=== PATIENT | male | born 1940 | race Caucasian/White ===

== ENCOUNTER 2017-03-03 12:58 | Outpatient (CLI) | payer MEDICARE | END 2017-03-03 12:59 | disposition home or self-care (01) | LOC: LABBT 12:58 | PROVIDERS: ATTEND Neurological Surgery | DX: Z01.818 Encounter for other preprocedural examination (principal); M48.061 Spinal stenosis, lumbar region without neurogenic claudication ==

== ENCOUNTER → 2017-03-10 | Day surgery (SDC) | payer MEDICARE ==
[2017-03-03 13:32] VITALS: BMI 36.7
--- NOTE | 2017-03-09 20:16 | HP ---
HISTORY OF PRESENT ILLNESS: Mr. Jones is a known patient of ours, who presents for evaluation of lo w back pain and neurogenic claudication symptoms. He signed to us for previous lumbar decompression and bilateral carpal tunnel releases. At present, he does again mostly describe significant low back pain with neurogenic symptoms as he is walking. MRI performed at provided on disk reveals sig nificant central canal stenosis at L2-L3 and moderate canal stenosis at L3-L4, which matches symptoms rather well and he hopes to treat this surgically. 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 PAST SURGICAL HISTORY: Right lung resection, right shoulder rotator cuff repair, right thumb tendon attachment, uvula clipped, lumbar laminectomy x2, bilateral carpal tunnel release. MEDICATIONS: Spiriva, Diovan, Singulair, Combivent, Claritin, baby aspirin, and biotin. ALLERGIES: PENICILLIN. PHYSICAL EXAMINATION: Patient is alert and oriented x3. Gait is severely antalgic. Lower extremity motor exam is normal. ASSESSMENT: Lumbar stenosis with neurogenic claudication. PLAN: Dr. Calloway met with the patient, reviewed imaging, and ultimately, advocated for an L2 through L3 decompression. He explained to the patient the risks, benefits, and alternatives of the procedure . The patient expressed understanding and would like to move forward with surgery as discussed. I d o believe the patient is mentally competent and capable of making medical decisions for himself and w e will move forward with surgery as planned. Tyrell Vázquez PA-C dictating for Leonardo Calloway M.D.
[~2017-03-10] MED LIST: Bupivacaine/Epinephrine 0.25% 30 ML VIAL ONE; Fentanyl 100 MCG/2 ML VIAL ONE; Fentanyl 250 MCG/5 ML VIAL ONE; Glycopyrrolate 0.2 MG/ML 5 ML SYRINGE ONE; HYDROcodone/Acetaminophen 5/325 mg Tablet ONE; Lidocaine 1% PF 5 ML VIAL ONE; Ondansetron HCl/PF 4 MG/2 ML Vial ONE; Propofol 200 MG/20 ML VIAL ONE; Tamsulosin HCl 0.4 MG CAP ONE; Thrombin 5000 UNITS/5 ML VIAL ONE; Vancomycin HCl 500 MG VIAL ONE
--- NOTE | 2017-03-10 11:20 | OP ---
DATE OF PROCEDURE: 03/10/2017 SURGEON: Leonardo Calloway M.D. ENVIRONMENTAL HEALTH INSPECTOR: Tyrell Vázquez PA-C INDICATION: Pain. DIAGNOSIS: Lumbar stenosis. PROCEDURE: L2-L3 lumbar decompression. ANESTHESIA: General. TECHNIQUE: The patient was brought into the operating room and placed under general anesthesia. He was flipped from a supine to a prone position on the operating room table. A linear incision was huseyin nned just superior to an old incision. After prepping and draping and after an appropriate operative pause, the incision was created. Soft tissues were swept away from midline. A self-retaining retra ctor was placed in the wound for optimal exposure. After confirming the appropriate level with C-arm fluoroscopy, the spinous process of L2 and what remained of L3 were removed. A high-speed cutting d rill bit was used to remove the lamina at L2 and L3. The laminectomy encompassed the medial aspect o f the facet joints at that segment. After completely decompressing this area, the wound was irrigate d. Hemostasis was maintained throughout. The wound was then closed in anatomic layers and a pressur e dressing was applied. There were no known procedural complications.
== END ==
LOC: SDC 06:30
PROVIDERS: ATTEND Neurological Surgery
PROC: 00NY0ZZ Release Lumbar Spinal Cord, Open Approach (ICD-10-PCS; principal; 2017-03-10)
DX: M48.061 Spinal stenosis, lumbar region without neurogenic claudication (principal); I10 Essential (primary) hypertension; J45.909 Unspecified asthma, uncomplicated; Z88.0 Allergy status to penicillin; Z88.1 Allergy status to other antibiotic agents; Z98.890 Other specified postprocedural states
CPT/HCPCS: 76001; 96374; J2001; J2405; J2704; J3010; J3370

== ENCOUNTER 2017-03-17 06:46 | Emergency (ER) | payer MEDICARE ==
[2017-03-17] MEDS ORDERED: Ondansetron HCl/PF 4 MG/2 ML Vial ONE (08:43)
[2017-03-17] MEDS ORDERED: Morphine 4 MG/ML VIAL ONE (08:43)
[2017-03-17 08:54] LABS: #Basophils 0.1 thou/uL (0.0-0.2); #Eosinphils 0.1 thou/uL (0.0-0.7); #Lymphocytes 1.3 thou/uL (1.20-3.40); #Monocytes 0.7 thou/uL (0.11-0.59); #Neutrophils 5.7 thou/uL (1.40-6.50); %Basophils 0.9 % (0.0-1.0); %Eosinophils 1.3 % (0.0-10.0); %Monocytes 9.2 % (0.0-10.0); Hematocrit 38.2 % (42.0-52.0); Mean Platelet Volume 6.4 fL (7.4-10.4); Red Blood Cell (RBC) Count 3.94 mill/uL (4.70-6.10); White Blood Cell (WBC) Count 7.9 thou/uL (4.8-10.8)
[2017-03-17 09:17] LABS: ALT (SGPT) 54 U/L (8-55); AST (SGOT) 36 U/L (5-34); Alkaline Phosphatase 62 U/L (40-150); Anion Gap 13 mmol/L (10-20); BUN (Urea Nitrogen) 23 mg/dL (8.4-25.7); Bilirubin, Total 0.7 mg/dL (0.2-1.2); Calc. Creatinine Clearance 0 mL/min (70-130); Carbon Dioxide 31 mmol/L (23-31); Chloride 97 mmol/L (98-107); Estimated GFR-MDRD 66; Globulin 2.8 g/dL (2.4-3.5); Protein, Total 7.1 g/dL (5.8-8.1)
== END 2017-03-17 10:46 | disposition home or self-care (01) ==
LOC: ERS 06:46
DX: G89.18 Other acute postprocedural pain (principal); M54.5 Low back pain; E11.9 Type 2 diabetes mellitus without complications
CPT/HCPCS: 36415; 80053; 83880; 85025; 96361; 96374; 96375; J2270; J2405

== ENCOUNTER 2018-03-30 05:52 | Day surgery (SDC) | payer MEDICARE ==
[2018-03-24 11:57] VITALS: BMI 35.9
--- NOTE | 2018-03-29 12:56 | HP ---
HISTORY OF PRESENT ILLNESS: Mr. Jones is a 77-year-old man known to us for previous evaluations of neck and lower back complaints. Most recently, he has developed what sounds like myelopathic symptoms and has a new MRI from [facility] on disk that reveals severe central canal stenosis at C4-C5 that would explain the symptoms rather well. At this point, he would like to move forward with surgery, which would be a posterior cervical decompression at C4-C5. PAST MEDICAL HISTORY: Significant for hypertension, asthma, and carcinoma of the lung. PAST SURGICAL HISTORY: Right lung resection, right shoulder rotator cuff repair, right thumb tendon attachment, uvula clipped, lumbar laminectomy x3, and bilateral carpal tunnel release. MEDICATIONS: Spiriva, Diovan, Singulair, Combivent, Claritin, aspirin, and biotin. ALLERGIES: TO PENICILLIN. PHYSICAL EXAMINATION: The patient is alert and oriented x3. Gait is slowed and somewhat antalgic. Upper extremity motor exam was intact, however, he does have some clumsiness in bilateral hands. ASSESSMENT: Cervical myelopathy. PLAN: Dr. Jones met with the patient, reviewed imaging, and advocated for C4-C5 posterior cervical decompression. He explained to the patient the risks, benefits, and alternatives to the procedure. The patient expressed understanding, and elected to move forward with surgery as discussed. I do believe the patient is mentally competent and capable of making medical decisions for himself. We will move forward with surgery as planned. Job ID: [id number]
[2018-03-30] MEDS ORDERED: Bupivacaine HCl 0.5%/Epinephrine 1:200,000/PF 30 ml Vial ONE (06:16)
[2018-03-30] MEDS ORDERED: Thrombin 5000 UNITS/5 ML VIAL ONE (06:16)
[2018-03-30] MEDS ORDERED: Vancomycin HCl 1.5 GM in Sodium Chloride 0.9% 250 ML 300 ML IVPB SCH (07:00)
[2018-03-30] MEDS ORDERED: Fentanyl 100 MCG/2 ML VIAL ONE ×2 (07:16→09:17)
[2018-03-30] MEDS ORDERED: Tamsulosin HCl 0.4 MG CAP ONE (09:11)
[2018-03-30] MEDS ORDERED: Acetaminophen/Codeine 30-300mg Tablet ONE (13:52)
--- NOTE | 2018-03-30 14:51 | OP ---
DATE OF PROCEDURE: 03/30/2018 DIRECTOR OF SPA AND GUEST EXPERIENCE: Tyrell Vázquez PA-C INDICATION: Pain. 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 PROCEDURE PERFORMED: Posterior cervical decompression, C4-C5. ANESTHESIA: General. TECHNIQUE: The patient was brought into the operating room and placed under general anesthesia. He was flipped from the supine to prone position on keeping his neck in a neutral position. A linear incision was planned over the C4-C5 segment. After prepping and draping and after a preoperative pause, the incision was created. The soft tissues were swept away from midline. Self-retaining retractors were placed in the wound for optimal exposure. After confirming the appropriate level with C-arm fluoroscopy, a high-speed cutting drill bit as well as 1 and 2 mm Kerrisons were used to perform a laminectomy at the C4-C5 segment. After decompressing the central canal, the wound was irrigated. Hemostasis was maintained throughout. The wound was then closed in anatomic layers and a pressure dressing was applied. There were no known procedural complications. Job ID: [id number]
[2018-03-30] MEDS ORDERED: PROPOFOL 200 MG/20 ML VIAL ONE (15:34)
[2018-03-30] MEDS ORDERED: Dexamethasone 20 MG/5 ML VIAL ONE (15:34)
[2018-03-30] MEDS ORDERED: PHENYLEPHRINE-NS 100 MCG/ML 10 ML SYRINGE ONE (15:34)
[2018-03-30] MEDS ORDERED: Ondansetron PF 4 MG/2 ML Vial ONE (15:34)
[2018-03-30] MEDS ORDERED: Succinylcholine Chloride 20 MG/ML 10 ml SYRINGE FS ONE (15:34)
[2018-03-30] MEDS ORDERED: ePHEDrine/0.9% NaCl/PF SYRINGE 50 mg/10 ml ONE (15:34)
== END 2018-03-30 14:00 | disposition home or self-care (01) ==
LOC: SDC 05:52
PROVIDERS: ATTEND Neurological Surgery
PROC: 01N10ZZ Release Cervical Nerve, Open Approach (ICD-10-PCS; principal; 2018-03-30)
DX: M48.02 Spinal stenosis, cervical region (principal); M47.12 Other spondylosis with myelopathy, cervical region; G47.30 Sleep apnea, unspecified; I10 Essential (primary) hypertension; J45.909 Unspecified asthma, uncomplicated; Z85.118 Personal history of other malignant neoplasm of bronchus and lung; Z87.891 Personal history of nicotine dependence; Z88.0 Allergy status to penicillin; Z88.8 Allergy status to other drugs, medicaments and biological substances; Z90.2 Acquired absence of lung [part of]; Z79.82 Long term (current) use of aspirin; Z79.899 Other long term (current) drug therapy; Z79.84 Long term (current) use of oral hypoglycemic drugs
CPT/HCPCS: 76000; 96374; J0670; J1100; J2405; J2704; J3010; J3370; J7050

== ENCOUNTER 2018-05-12 09:53 | Outpatient (CLI) | payer MEDICARE ==
--- NOTE | 2018-05-12 10:38 | RAD ---
LUMBAR SPINE THREE VIEWS: Technique: Lateral views were obtained in neutral, flexion, and extension positions. Indications: Low back pain. Comparison: 10-24-13 FINDINGS: There are prominent hypertrophic degenerative changes. Large anterior and lateral bridging osteophyte s are noted at T12-L1 and L1-2. Mild osteophytes are seen at all other levels. There is loss of disc space at T12-L1, L1-2, and L2-3. Mild loss of disc space at L3-4. There is an anterior listhesis at L4-5 which was present on the prior exam and does not appear signif icantly changed. Prominent facet hypertrophy is noted throughout the lumbar spine. Anterolisthesis at L4-5 does not appear to significantly change with flexion or extension. IMPRESSION: Moderate degenerative change of the lumbar spine as described. Anterolisthesis at L4-5 again noted. POS: [facility]
== END 2018-05-12 09:54 | disposition home or self-care (01) ==
LOC: TBSIIMAG 09:53
PROVIDERS: ATTEND Neurological Surgery
DX: G56.20 Lesion of ulnar nerve, unspecified upper limb (principal); G56.00 Carpal tunnel syndrome, unspecified upper limb; M47.816 Spondylosis without myelopathy or radiculopathy, lumbar region; M43.16 Spondylolisthesis, lumbar region
CPT/HCPCS: 72100

== ENCOUNTER 2018-08-14 10:22 | Emergency (ER) | payer MEDICARE ==
--- NOTE | 2018-08-14 11:09 | RAD ---
EXAM: 4 views of the left elbow HISTORY: Elbow pain and swelling that has gotten worse over the last 5 days COMPARISON: None FINDINGS: No elbow effusion is seen. There is no evidence of acute fracture or dislocation. No signi ficant degenerative changes are seen. Severe posterior soft tissue swelling is present. IMPRESSION: No evidence of acute osseous abnormality.
--- NOTE | 2018-08-14 11:58 | ULT ---
EXAM: Left upper extremity venous ultrasound HISTORY: Left upper extremity pain and edema COMPARISON: None TECHNIQUE: Multiplanar grayscale and color Doppler images were obtained in a left upper extremity jhoan ous ultrasound. Spectral analysis of the Doppler waveforms were performed. FINDINGS: The left internal jugular vein demonstrates normal compression and flow without evidence of thrombus. The left subclavian vein demonstrates normal flow and augmentation without evidence of thrombus. The left axillary and brachial vein demonstrate normal compression, flow, and augmentation. The venous structures distal to the elbow are unremarkable. The basilic and cephalic veins are patent . IMPRESSION: No evidence of DVT.
== END 2018-08-14 12:36 | disposition home or self-care (01) ==
LOC: ERS 10:22
DX: M70.32 Other bursitis of elbow, left elbow (principal); I10 Essential (primary) hypertension; E11.9 Type 2 diabetes mellitus without complications

== ENCOUNTER 2018-11-01 12:58 | Outpatient (CLI) | payer MEDICARE ==
--- NOTE | 2018-11-01 13:16 | RAD ---
EXAM: Chest 2 views: HISTORY: Dyspnea COMPARISON: 05/08/2016 FINDINGS: There is a normal-sized cardiomediastinal silhouette. Complete opacification of the right thorax is again seen. There is no evidence of consolidation, mass, or pleural effusion on the left. Degenerative changes are seen in the spine. IMPRESSION: Stable exam
== END 2018-11-01 12:59 | disposition home or self-care (01) ==
LOC: RAD 12:58
PROVIDERS: ATTEND Internal Medicine Critical Care Medicine
DX: R06.00 Dyspnea, unspecified (principal)
CPT/HCPCS: 71046

== ENCOUNTER 2018-11-29 10:34 | Outpatient (CLI) | payer MEDICARE ==
--- NOTE | 2018-11-29 11:07 | RAD ---
2 VIEW CHEST: Date: 11/29/18 COMPARISON: 11/01/18. FINDINGS: Opacification of the right hemithorax with right pneumonectomy changes again noted. The left lung estefani ears well aerated and clear. Heart and mediastinum unremarkable. Degenerative spine changes again not ed. IMPRESSION: No acute interval change. POS: OFF
== END 2018-11-29 10:35 | disposition home or self-care (01) ==
LOC: RAD 10:34
PROVIDERS: ATTEND Internal Medicine Critical Care Medicine
DX: R06.00 Dyspnea, unspecified (principal)
CPT/HCPCS: 71046

== ENCOUNTER 2018-12-19 10:50 | Day surgery (SDC) | payer MEDICARE ==
[2018-12-16 10:39] VITALS: BMI 36.9
[2018-12-19] MEDS ORDERED: Midazolam HCl 2 mg/2 ml Vial ONE (12:20)
[2018-12-19] MEDS ORDERED: Fentanyl 100 MCG/2 ML VIAL ONE ×2 (12:21→13:11)
[2018-12-19 12:54] LABS: Anion Gap 13 mmol/L (10-20); BUN (Urea Nitrogen) 15 mg/dL (8.4-25.7); Calc. Creatinine Clearance 100 mL/min (70-130); Calcium 9.9 mg/dL (7.8-10.44); Carbon Dioxide 25 mmol/L (23-31); Chloride 103 mmol/L (98-107); Estimated GFR-MDRD 72; Glucose 118 mg/dL (83-110); Potassium 4.4 mmol/L (3.5-5.1); Sodium 137 mmol/L (136-145)
[2018-12-19] MEDS ORDERED: Propofol 500 MG/50 ML VIAL ONE (13:11)
[2018-12-19] MEDS ORDERED: Bupivacaine HCl 0.5%/Epinephrine 1:200,000/PF 30 ml Vial ONE ×2 (13:12→13:41)
[2018-12-19] MEDS ORDERED: Lidocaine 1% w/Epinephrine 1:100K 20 ML VIAL ONE (13:43)
[2018-12-19] MEDS ORDERED: PROPOFOL 200 MG/20 ML VIAL ONE (15:16)
[2018-12-19] MEDS ORDERED: HYDROcodone/Acetaminophen 5/325 mg Tablet ONE ×2 (15:39)
--- NOTE | 2018-12-19 21:10 | OP ---
DATE OF PROCEDURE: 12/19/2018 PREOPERATIVE DIAGNOSES: 1. Right carpal tunnel syndrome. 2. Right extensor pollicis longus deficiency. POSTOPERATIVE DIAGNOSES: 1. Right carpal tunnel syndrome. 2. Right extensor pollicis longus deficiency. PROCEDURE PERFORMED: 1. Right carpal tunnel release. 2. Palmaris longus transferred to the extensor pollicis longus. DESCRIPTION OF PROCEDURE: The patient was brought to the operating room. After he was given axillary block and he was given 20 mL of 1% Xylocaine with epinephrine in the proximal palm and over the dorsum of the index MCP joint and the dorsum of the thumb MCP joint. His right upper extremity was then prepped and draped in the usual fashion. No tourniquet was used. A straight longitudinal incision was made in the mid proximal palm. The deep palmar fascia was incised, exposing the carpal ligament which was then released along the ulnar border of the medial nerve. The extensor indicus proprius was then looked for over the dorsum of the index MCP joint, but was not found. This was done to perform a transfer to the extensor pollicis longus because the patient stated his previous transfer which never worked was from the extensor digiti minimi of the little finger. Since there was no second tendon over the dorsum of the index MCP joint and there was some question about whether the extensor digiti minimi had already been used, it was decided to use the pollicis longus. This was taken down all the way to the fascia of the palm and released and then tunnelled subcutaneously over to the dorsum of the thumb. The extensor pollicis longus was explored and cut where its stump was located leaving a length of tendon to about the CMC joint. The pollicis longus which had been transferred subcutaneously was then woven into the extensor pollicis longus and sutured with 4-0 Ethibond. The tightness was adjusted so that the thumb was in full extension with the wrist in neutral position. The wounds were irrigated and closed with 4-0 nylon. A bulky hand dressing was applied with plaster splint incorporating the thumb with slight wrist flexion and full thumb extension. The patient was then taken back to day stay. He was monitored. When he was awake and stable, he was discharged home. He was given a prescription for Tylenol with codeine. I explained to him and his that there was no extensor indicis proprius when I explored it and had to use the palmaris longus. The patient will follow up in the office. Job ID: [id number]
--- NOTE | 2018-12-21 19:50 | EKG ---
Test Reason : PREOP Blood Pressure : / mmHG Vent. Rate : 090 BPM Atrial Rate : 090 BPM P-R Int : 188 ms QRS Dur : 090 ms QT Int : 362 ms P-R-T Axes : 044 -34 014 degrees QTc Int : 442 ms Sinus rhythm with frequent Premature ventricular complexes Left axis deviation RSR' or QR pattern in V1 suggests right ventricular conduction delay Inferior infarct , age undetermined Abnormal ECG When compared with ECG of 19-APR-2015 12:03, Premature ventricular complexes are now Present Confirmed by CARLOS JOSEPH, DR. Capps ([id number]) on 12/21/2018 7:50:12 PM Referred By: GILMER Confirmed By:DR. Génesis GONZALEZ MD
== END 2018-12-19 16:20 | disposition home or self-care (01) ==
LOC: SDC 10:50
PROVIDERS: ATTEND Orthopaedic Surgery
PROC: 01N50ZZ Release Median Nerve, Open Approach (ICD-10-PCS; principal; 2018-12-19)
PROC: 0LX50ZZ Transfer Right Lower Arm and Wrist Tendon, Open Approach (ICD-10-PCS; 2018-12-19)
DX: M67.88 Other specified disorders of synovium and tendon, other site (principal); S56.511A Strain of other extensor muscle, fascia and tendon at forearm level, right arm, initial encounter; G56.01 Carpal tunnel syndrome, right upper limb; G47.30 Sleep apnea, unspecified; M48.061 Spinal stenosis, lumbar region without neurogenic claudication; J45.909 Unspecified asthma, uncomplicated; E11.42 Type 2 diabetes mellitus with diabetic polyneuropathy; Z85.118 Personal history of other malignant neoplasm of bronchus and lung; Z87.891 Personal history of nicotine dependence; Z79.84 Long term (current) use of oral hypoglycemic drugs; Z79.899 Other long term (current) drug therapy; Z88.0 Allergy status to penicillin; Z88.1 Allergy status to other antibiotic agents; Z88.8 Allergy status to other drugs, medicaments and biological substances; Z90.2 Acquired absence of lung [part of]
CPT/HCPCS: 80048; 93005; 93010; J0670; J2001; J2250; J2704; J3010

== ENCOUNTER 2019-05-04 12:48 | Outpatient (CLI) | payer MEDICARE ==
--- NOTE | 2019-05-04 13:13 | RAD ---
EXAM: Two views chest PROVIDED CLINICAL HISTORY: Dyspnea COMPARISON: 11/29/2018 FINDINGS: Persistent opacification right hemithorax is noted with postsurgical changes right hilar region. Melissa ent has history of prior right pneumonectomy. There is elevation of the right hemidiaphragm. Calcification are seen overlying the right chest which is also a stable finding. The left lung remain s clear. Degenerative changes are again present spine. There has been no interval change from prior exam. IMPRESSION: Stable chest with postoperative changes right hemithorax and complete opacification right hemithorax with calcifications again seen..
== END 2019-05-04 12:49 | disposition home or self-care (01) ==
LOC: RAD 12:48
PROVIDERS: ATTEND Internal Medicine Critical Care Medicine
DX: R06.00 Dyspnea, unspecified (principal); R91.8 Other nonspecific abnormal finding of lung field; J94.8 Other specified pleural conditions; Z98.890 Other specified postprocedural states
CPT/HCPCS: 71046

== ENCOUNTER 2020-06-14 16:42 | Inpatient (IN) | payer MEDICARE ==
[~2020-06-14 16:42] MED LIST changes: -Bupivacaine/Epinephrine 0.25% 30 ML VIAL ONE; -Fentanyl 100 MCG/2 ML VIAL ONE; -Fentanyl 250 MCG/5 ML VIAL ONE; -Glycopyrrolate 0.2 MG/ML 5 ML SYRINGE ONE; -HYDROcodone/Acetaminophen 5/325 mg Tablet ONE; +Iopamidol-370 76% 500 ML 1 ML ONE; -Lidocaine 1% PF 5 ML VIAL ONE; -Ondansetron HCl/PF 4 MG/2 ML Vial ONE; -Propofol 200 MG/20 ML VIAL ONE; -Tamsulosin HCl 0.4 MG CAP ONE; -Thrombin 5000 UNITS/5 ML VIAL ONE; -Vancomycin HCl 500 MG VIAL ONE
[2020-06-14 17:38] LABS: #Basophils 0.1 thou/uL (0.0-0.2); #Eosinphils 0.1 thou/uL (0.0-0.7); #Monocytes 0.4 thou/uL (0.11-0.59); #Neutrophils 9.7 thou/uL (1.40-6.50); %Basophils 0.6 % (0.0-1.0); %Eosinophils 0.8 % (0.0-10.0); %Lymphocytes 9.2 % (21.0-51.0); %Monocytes 3.3 % (0.0-10.0); %Neutrophils 86.2 % (42.0-75.0); Hemoglobin 15.5 g/dL (14.0-18.0); Mean Corpuscular HGB CONC 35.4 g/dL (32.0-36.0); Mean Corpuscular Hemoglobin 33.8 pg (27.0-31.0); Mean Corpuscular Volume 95.2 fL (78.0-98.0); Mean Platelet Volume 8.2 fL (7.4-10.4); Platelet Count 175 thou/uL (130-400); RBC Distribution Width 12.4 % (11.5-14.5); White Blood Cell (WBC) Count 11.3 thou/uL (4.8-10.8)
[2020-06-14 18:06] LABS: ALT (SGPT) 23 U/L (8-55); AST (SGOT) 28 U/L (5-34); Albumin 4.5 g/dL (3.4-4.8); Alkaline Phosphatase 85 U/L (40-110); Anion Gap 15 mmol/L (10-20); BUN (Urea Nitrogen) 18 mg/dL (8.4-25.7); Bilirubin, Total 0.6 mg/dL (0.2-1.2); Calc. Creatinine Clearance 0 mL/min (70-130); Carbon Dioxide 28 mmol/L (23-31); Chloride 99 mmol/L (98-107); Globulin 3.2 g/dL (2.4-3.5); Glucose 260 mg/dL (83-110); Potassium 4.9 mmol/L (3.5-5.1); Protein, Total 7.7 g/dL (5.8-8.1); Sodium 137 mmol/L (136-145)
[2020-06-14] MEDS ORDERED: cefTRIAXone\\ROCEPHIN 2 GM VIAL ONE (20:50)
[2020-06-14] MEDS ORDERED: Azithromycin 500 MG VIAL ONE (20:50)
[2020-06-14] MEDS ORDERED: Acetaminophen 325 MG TAB PO PRN (22:39)
[2020-06-14] MEDS ORDERED: Dextrose 5% in Water 1,000 ML IV PRN (22:39)
[2020-06-14] MEDS ORDERED: Dextrose 50% Abboject 50 ML SYRINGE SLOW IVP PRN (22:39)
[2020-06-14] MEDS ORDERED: Ondansetron PF 4 MG/2 ML Vial IVP PRN (22:39)
[2020-06-14] MEDS ORDERED: Albuterol Sulfate 2.5 mg/3 ml Neb NEB PRN (22:45)
[2020-06-14 23:57] VITALS: BMI 36.8
[2020-06-15 00:13] LABS: Lactic Acid 2.4 mmol/L (0.5-2.2)
[2020-06-15] MEDS ORDERED: Sodium Chloride 0.9% 1,000 ML IV SCH (00:15)
[2020-06-15] MEDS: Cefepime 1 GM in Sodium Chloride 0.9% 100 ML IVPB SCH ×2 (01:03→12:40)
[2020-06-15] MEDS: VANCOMYCIN 2 GRAM/400 ML BAG 2 GM in Premix Bag 1 BAG IVPB SCH (01:53)
[2020-06-15 02:20] LABS: Bacteria/HPF None Seen HPF (None Seen); Bilirubin Negative (Negative); Blood, Urine Negative (Negative); Clarity Clear (Clear); Glucose, Urine (Dipstick) 500 mg/dL (Negative); Ketone, Urine Negative (Negative); Leukocyte Negative Leu/uL (Negative); Nitrite Negative (Negative); Protein, Urine (Dipstick) 10 mg/dL (Neg-Trace); RBC/HPF 0-3 HPF (0-3); Specific Gravity, Urine 1.029 (1.002-1.036); Squamous Epithelial None Seen HPF (0-3); Urobilinogen Normal mg/dL (Less than 2); WBC/HPF 0-3 HPF (0-3)
[2020-06-15 02:24] LABS: Urine Culture Reflex No No
[2020-06-15 05:11] LABS: #Lymphocytes 1.3 thou/uL (1.20-3.40); #Monocytes 0.6 thou/uL (0.11-0.59); #Neutrophils 11.7 thou/uL (1.40-6.50); %Basophils 0.2 % (0.0-1.0); %Eosinophils 0.3 % (0.0-10.0); %Lymphocytes 9.7 % (21.0-51.0); %Monocytes 4.1 % (0.0-10.0); %Neutrophils 85.8 % (42.0-75.0); Hemoglobin 15.2 g/dL (14.0-18.0); Mean Corpuscular HGB CONC 32.7 g/dL (32.0-36.0); Mean Corpuscular Hemoglobin 31.2 pg (27.0-31.0); Mean Corpuscular Volume 95.2 fL (78.0-98.0); Mean Platelet Volume 7.4 fL (7.4-10.4); Platelet Count 200 thou/uL (130-400); RBC Distribution Width 12.6 % (11.5-14.5); Red Blood Cell (RBC) Count 4.89 mill/uL (4.70-6.10); White Blood Cell (WBC) Count 13.6 thou/uL (4.8-10.8)
[2020-06-15 05:28] LABS: Hemoglobin A1c 7.5 % (4.0-6.0)
[2020-06-15 05:31] LABS: Anion Gap 19 mmol/L (10-20); BUN (Urea Nitrogen) 20 mg/dL (8.4-25.7); Calc. Creatinine Clearance 89 mL/min (70-130); Calcium 9.1 mg/dL (7.8-10.44); Carbon Dioxide 19 mmol/L (23-31); Chloride 102 mmol/L (98-107); Glucose 255 mg/dL (83-110); Potassium 4.7 mmol/L (3.5-5.1); Sodium 135 mmol/L (136-145)
[2020-06-15] MEDS: HumaLOG 300 UNITS/3 ML VIAL SC PRN ×4 (06:20→21:04)
[2020-06-15] MEDS ORDERED: FLU VACC QS2020-21(65YR UP)/PF 240 MCG/0.7 ML SYRINGE IM ONE (09:00)
[2020-06-15] MEDS: methylPREDNISolone Sod Succ 40 MG VIAL IVP SCH ×3 (09:25→21:00)
[2020-06-15] MEDS: Lisinopril 20 MG TAB PO SCH (20:59)
[2020-06-15] MEDS: Gabapentin 400 MG CAP PO SCH (20:59)
[2020-06-16] MEDS: Cefepime 1 GM in Sodium Chloride 0.9% 100 ML IVPB SCH ×2 (01:14→13:07)
[2020-06-16] MEDS: VANCOMYCIN 2 GRAM/400 ML BAG 2 GM in Premix Bag 1 BAG IVPB SCH (01:14)
[2020-06-16 05:38] LABS: #Eosinphils 0.1 thou/uL (0.0-0.7); #Monocytes 0.4 thou/uL (0.11-0.59); #Neutrophils 15.3 thou/uL (1.40-6.50); %Basophils 0.1 % (0.0-1.0); %Eosinophils 0.4 % (0.0-10.0); %Lymphocytes 6.1 % (21.0-51.0); %Monocytes 2.3 % (0.0-10.0); Hemoglobin 14.6 g/dL (14.0-18.0); Mean Corpuscular HGB CONC 33.2 g/dL (32.0-36.0); Mean Corpuscular Hemoglobin 31.9 pg (27.0-31.0); Mean Corpuscular Volume 96.1 fL (78.0-98.0); Mean Platelet Volume 7.6 fL (7.4-10.4); Platelet Count 186 thou/uL (130-400); RBC Distribution Width 12.7 % (11.5-14.5); Red Blood Cell (RBC) Count 4.59 mill/uL (4.70-6.10); White Blood Cell (WBC) Count 16.8 thou/uL (4.8-10.8)
[2020-06-16 06:01] LABS: Anion Gap 19 mmol/L (10-20); BUN (Urea Nitrogen) 22 mg/dL (8.4-25.7); Calc. Creatinine Clearance 90 mL/min (70-130); Calcium 9.2 mg/dL (7.8-10.44); Carbon Dioxide 19 mmol/L (23-31); Chloride 100 mmol/L (98-107); Glucose 235 mg/dL (83-110); Potassium 4.6 mmol/L (3.5-5.1); Sodium 133 mmol/L (136-145)
[2020-06-16] MEDS: Cholecalciferol 1,000 UNITS (25 MCG) TAB PO SCH (08:40)
[2020-06-16] MEDS: Lisinopril 20 MG TAB PO SCH ×2 (08:41→21:05)
[2020-06-16] MEDS: Ezetimibe 10 MG TAB PO SCH (08:41)
[2020-06-16] MEDS: methylPREDNISolone Sod Succ 40 MG VIAL IVP SCH (08:42)
[2020-06-16] MEDS: Multivit, Therapeutic 1 TAB PO SCH (08:42)
[2020-06-16] MEDS: Gabapentin 400 MG CAP PO SCH ×4 (08:47→21:04)
[2020-06-16] MEDS ORDERED: Non-Formulary Item 1 EACH (Tiotropium [Spiriva Handihaler] 18 MCG Box) PO SCH (09:00)
[2020-06-16] MEDS ORDERED: Non-Formulary Item 1 EACH (Albuterol Sulfate [Albuterol Sulfate Hfa] 8.5 GM Hfa.Aer.Ad) IH SCH (09:00)
[2020-06-16] MEDS: HumaLOG 300 UNITS/3 ML VIAL SC PRN ×2 (13:08→17:56)
[2020-06-16] MEDS ORDERED: HumaLOG 300 UNITS/3 ML VIAL SC PRN (21:15)
[2020-06-17] MEDS: Cefepime 1 GM in Sodium Chloride 0.9% 100 ML IVPB SCH ×2 (00:40→13:25)
[2020-06-17 01:38] LABS: Vancomycin, Trough 7.1 ug/mL
[2020-06-17] MEDS ORDERED: Vancomycin 1 GM in Premix Bag 1 BAG IVPB SCH ×2 (02:00→21:00)
[2020-06-17] MEDS: Vancomycin 1 GM in Premix Bag 1 BAG IVPB SCH ×2 (03:42→16:32)
[2020-06-17] MEDS: HumaLOG 300 UNITS/3 ML VIAL SC PRN ×2 (06:45→13:26)
[2020-06-17 07:27] LABS: Anion Gap 17 mmol/L (10-20); BUN (Urea Nitrogen) 28 mg/dL (8.4-25.7); Calc. Creatinine Clearance 87 mL/min (70-130); Calcium 8.7 mg/dL (7.8-10.44); Carbon Dioxide 22 mmol/L (23-31); Chloride 100 mmol/L (98-107); Glucose 216 mg/dL (83-110); Potassium 4.9 mmol/L (3.5-5.1); Sodium 134 mmol/L (136-145)
[2020-06-17 08:02] LABS: #Lymphocytes 1.3 thou/uL (1.20-3.40); #Monocytes 1.1 thou/uL (0.11-0.59); #Neutrophils 16.2 thou/uL (1.40-6.50); %Basophils 0.1 % (0.0-1.0); %Eosinophils 0.2 % (0.0-10.0); %Lymphocytes 6.8 % (21.0-51.0); %Monocytes 5.8 % (0.0-10.0); Band 6 % (5-11); Lymphocytes 5 % (21-51); MDiff Complete? YES; Mean Corpuscular HGB CONC 31.5 g/dL (32.0-36.0); Mean Corpuscular Volume 95.3 fL (78.0-98.0); Mean Platelet Volume 8.5 fL (7.4-10.4); Monocytes 6 % (0-10); Neutrophil 82 % (42-75); Platelet Clumps SLIGHT; Platelet Count 120 thou/uL (130-400); Polychromasia SLIGHT = 2-3 cells (100X) (0-2/hpf); RBC Distribution Width 12.6 % (11.5-14.5); Reactive Lymphocytes 1 % (0-10); Red Blood Cell (RBC) Count 4.65 mill/uL (4.70-6.10); Vacuoles SLIGHT; White Blood Cell (WBC) Count 18.7 thou/uL (4.8-10.8)
[2020-06-17] MEDS: Lisinopril 20 MG TAB PO SCH (10:35)
[2020-06-17] MEDS: Ezetimibe 10 MG TAB PO SCH (10:35)
[2020-06-17] MEDS: Multivit, Therapeutic 1 TAB PO SCH (10:35)
[2020-06-17] MEDS: Gabapentin 400 MG CAP PO SCH ×2 (10:36→13:25)
[2020-06-17] MEDS: Cholecalciferol 1,000 UNITS (25 MCG) TAB PO SCH (10:37)
[2020-06-17 12:36] VITALS: BP 160/71; TEMP 98.2
== END 2020-06-17 15:25 | disposition home or self-care (01) | DRG 871 ==
LOC: ERS 16:42 → 2SW 21:50 → OBSVTOIN 06-15 08:38 → 2NO 06-15 18:54
PROVIDERS: ADMIT Internal Medicine; ATTEND Hospitalist
DX: A41.9 Sepsis, unspecified organism (principal); J18.9 Pneumonia, unspecified organism; J44.1 Chronic obstructive pulmonary disease with (acute) exacerbation; J44.0 Chronic obstructive pulmonary disease with (acute) lower respiratory infection; E87.2 Acidosis; E11.40 Type 2 diabetes mellitus with diabetic neuropathy, unspecified; G47.33 Obstructive sleep apnea (adult) (pediatric); R22.2 Localized swelling, mass and lump, trunk; E66.9 Obesity, unspecified; Z85.118 Personal history of other malignant neoplasm of bronchus and lung; Z90.2 Acquired absence of lung [part of]; Z88.1 Allergy status to other antibiotic agents; Z88.0 Allergy status to penicillin; Z88.8 Allergy status to other drugs, medicaments and biological substances; Z79.84 Long term (current) use of oral hypoglycemic drugs; Z79.51 Long term (current) use of inhaled steroids; Z79.899 Other long term (current) drug therapy; Z87.891 Personal history of nicotine dependence; Z68.36 Body mass index [BMI] 36.0-36.9, adult
CPT/HCPCS: 36415; 36416; 71275; 80048; 80053; 80202; 81001; 83036; 83605; 84145; 84484; 85025; 85379; 87040; 87070; 87205; 87635; 93005; 94640; 94660; 96365; 96367; 96375; G0378; J0456; J0692; J0696; J1815; J2920; J3370; J3490; J7620; Q9967; U0003; U0005

== ENCOUNTER 2021-11-14 09:59 | Outpatient (CLI) | payer MEDICARE | END 2021-11-14 10:00 | disposition home or self-care (01) | LOC: RAD 09:59 | PROVIDERS: ATTEND Internal Medicine Critical Care Medicine | DX: R06.00 Dyspnea, unspecified (principal) | CPT/HCPCS: 71046 ==